=== PATIENT | male | born 1990 | race Caucasian/White ===

== ENCOUNTER 2022-04-19 14:45 | Emergency (ER) | payer OTHER ==
[2022-04-19] MEDS ORDERED: BACTRIM DS TAB1 EACH PO (17:14)
[2022-04-19] MEDS ORDERED: IBUPROFEN800 MG PO (17:14)
[2022-04-19] MEDS ORDERED: CEPHALEXIN500 MG PO (17:14)
== END 2022-04-19 18:00 | disposition home or self-care (01) ==
LOC: FER 14:45
DX: S61.441A Puncture wound with foreign body of right hand, initial encounter (principal); Z23 Encounter for immunization; W29.4XXA Contact with nail gun, initial encounter; Y92.89 Other specified places as the place of occurrence of the external cause; Y99.0 Civilian activity done for income or pay
CPT/HCPCS: 73120; 90471; 90715; J1170; J2405